=== PATIENT | female | born 1950 | race Caucasian/White ===

== ENCOUNTER → 2016-12-11 | Outpatient (CLI) | payer BC ==
[~2016-12-11] MED LIST: BPR75T PO; LEVO500T69 PO; NFPRILOC40 PO; SIMV40TA2
--- NOTE | 2016-12-11 19:18 | Diagnostic Imaging Report ---
INDICATION: Digital mammogram bilateral screening with tomosynthesis. This study was compared to the prior exams of 12/07/15, 12/08/14 and 10/15/13. At this time, there are no current complaints. The current study was also evaluated with a Computer Aided Detection (CAD) system. FINDINGS: There are scattered fibroglandular densities in both breasts which could obscure a lesion. When compared to the prior study, there has been no significant change. There is no primary or secondary sign of malignancy noted. The 3D tomographic views also fail to show any sign of malignancy. IMPRESSION: There is no evidence of malignancy. ACR BI-RADS Category 1: Negative. Result letter will be mailed to the patient. Note: At least 10% of breast cancer is not imaged by mammography. Dictated by: Dictated on workstation # [id number]
== END ==
LOC: RAD 11:09
PROVIDERS: ATTEND Nurse Practitioner Family
DX: Z12.31 Encounter for screening mammogram for malignant neoplasm of breast (principal)
CPT/HCPCS: 77067

== ENCOUNTER → 2018-01-16 | Outpatient (CLI) | payer BC ==
--- NOTE | 2018-01-19 18:07 | Diagnostic Imaging Report ---
INDICATION: Screening. The current study was also evaluated with a Computer Aided Detection (CAD) system. 3-D tomosynthesis was also performed and reviewed. COMPARISON is made with prior examinations from 12/11/2016 back to 04/24/2011. FINDINGS: There are scattered fibroglandular densities bilaterally. There is no dominant mass, spiculated lesion or suspicious calcification identified. The skin, nipples and axillae are unremarkable. IMPRESSION: Category 1, negative. ACR BI-RADS Category 1: Negative. Result letter will be mailed to the patient. Note: At least 10% of breast cancer is not imaged by mammography. Dictated by: Dictated on workstation # [id number]
== END ==
LOC: RAD 13:04
PROVIDERS: ATTEND Nurse Practitioner Family
DX: Z12.31 Encounter for screening mammogram for malignant neoplasm of breast (principal)
CPT/HCPCS: 77067

== ENCOUNTER 2018-09-19 05:56 | Emergency (ER) | payer BC | END 2018-09-19 06:36 | disposition home or self-care (01) | LOC: ER 05:56 ==

== ENCOUNTER → 2019-01-18 | Outpatient (CLI) | payer BC ==
[~2019-01-18] MED LIST changes: +AMOX-355 PO
--- NOTE | 2019-01-18 09:47 | Diagnostic Imaging Report ---
Indication: Routine screening. Comparison is made with prior mammogram from 01/16/2018 and 12/11/2016. 2-D and 3-D bilateral screening mammography was performed with CAD. Scattered fibroglandular densities are identified bilaterally. The parenchymal pattern is stable. Nodular densities in the upper left breast at anterior depth appears stable and consistent with benign etiology. No spiculated mass or malignant appearing microcalcifications are seen. The axillae are unremarkable. Impression: BI-RADS category 2. No mammographic features suspicious for malignancy are identified. ACR BI-RADS Category 2: Benign findings. Result letter will be mailed to the patient. Note: At least 10% of breast cancer is not imaged by mammography. Dictated by: Dictated on workstation # [id number]
== END ==
LOC: RAD 06:47
PROVIDERS: ATTEND Nurse Practitioner Family
DX: Z12.31 Encounter for screening mammogram for malignant neoplasm of breast (principal)
CPT/HCPCS: 77067

== ENCOUNTER → 2019-01-19 | Outpatient (CLI) | payer BC ==
--- NOTE | 2019-01-19 16:48 | Diagnostic Imaging Report ---
INDICATION: Asymptomatic postmenopausal screening COMPARISON: 12/07/2015 FINDINGS: AP Spine L1-L4: [BMD (g/cm2): 0.893] [T-Score: -2.6] [Z-Score: -0.9] [BMD Previous: 0.888] [BMD % Change: 0.6] LT Hip Neck: [BMD (g/cm2): 0.725] [T-Score: -2.2] [Z-Score: -0.5] LT Hip Total: [BMD (g/cm2):0.844] [T-Score:-1.3] [Z-Score: 0.2] [BMD Previous: 0.812] [BMD % Change: 3.9] RT Hip Neck: [BMD (g/cm2):0.758] [T-Score:-2.0] [Z-Score:-0.3] RT Hip Total: [BMD (g/cm2):0.883] [T-score:-1.0] [Z-Score:0.5] [BMD Previous:0.837] [BMD % Change:5.5] *Indicates significant change from prior examination based on 95% confidence level. World Health Organization criteria for BMD interpretation classify patients as Normal (T-score at or above -1.0), Osteopenic (T-score between -1.0 and -2.5) or Osteoporotic (T-score at or below -2.5). LIMITATIONS AND MODIFICATION: None. FRACTURE RISK (FRAX SCORE): The ten year probability of (%): Major Osteoporotic Fracture: [13.5] Hip Fracture: [3.1] IMPRESSION: 1. Osteoporosis. 2. There has been a statistically significant increase in BMD since prior exam, detailed above. 3. See below National Osteoporosis Foundation guidelines on when to potentially initiate pharmacologic therapy. Based on the National Osteoporosis Foundation Guidelines, pharmacologic treatment should be initiated in any of the following, unless clinical conditions suggest otherwise: * Any patient with prior fragility fracture of the hip or vertebrae. A spine fracture indicates 5X risk for subsequent spine fracture and 2X risk for subsequent hip fracture. * Osteoporosis (T-score <-2.5). * Postmenopausal women and men age 50 and older with low bone mass/osteopenia (T-score between -1.0 and -2.5) by DXA and 10-year major osteoporotic fracture greater than 20% or a 10-year probability of hip fracture greater than 3%. These fracture risks are supplied above in the FRAX score, if applicable. * Clinician judgement and/or patient preferences may indicate treatment for people with 10-year fracture probabilities above or below these levels. Dictated by: Dictated on workstation # [id number]
== END ==
LOC: RAD 13:15
PROVIDERS: ATTEND Nurse Practitioner Family
DX: M81.0 Age-related osteoporosis without current pathological fracture (principal); Z78.0 Asymptomatic menopausal state
CPT/HCPCS: 77080

== ENCOUNTER → 2020-02-29 | Outpatient (CLI) | payer BC, MEDICARE ==
--- NOTE | 2020-02-29 12:35 | Diagnostic Imaging Report ---
INDICATION: Routine screening. Comparison is made prior mammogram 01/18/2019 and 01/16/2018. 2-D and 3-D bilateral screening mammography was performed with CAD. Scattered fibroglandular densities are identified bilaterally. The parenchymal pattern is stable. Tiny benign nodule outer right breast is stable. No new mass or malignant-appearing microcalcifications are seen. Axillae are unremarkable. IMPRESSION: BI-RADS Category 2 No mammographic features suspicious for malignancy are identified. ACR BI-RADS Category 2: Benign findings. Result letter will be mailed to the patient. Note: At least 10% of breast cancer is not imaged by mammography. Dictated by: Dictated on workstation # [id number]
== END ==
LOC: RAD 08:00
PROVIDERS: ATTEND Nurse Practitioner Family
DX: Z12.31 Encounter for screening mammogram for malignant neoplasm of breast (principal)
CPT/HCPCS: 77063; 77067

== ENCOUNTER → 2020-05-12 | Outpatient (REF) ==
--- NOTE | 2020-05-12 15:48 | Diagnostic Imaging Report ---
INDICATION: Leg pain AP and lateral views of the left leg are obtained. FINDINGS: No acute fracture or dislocation is identified. No abnormal lytic or sclerotic focus is seen, and there is no radiopaque foreign body. IMPRESSION: No acute abnormality. Dictated by: Dictated on workstation # [id number]
--- NOTE | 2020-05-12 15:52 | Diagnostic Imaging Report ---
EXAMINATION: Right foot radiographs, 3 views. COMPARISON: None. HISTORY: 70-year-old female, fall. Right foot pain. FINDINGS: There is a mildly comminuted minimally displaced fracture of the right fifth metatarsal base with probable intra-articular fracture extension. There is no identified offset of the articulating surface. 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 IMPRESSION: 1. Comminuted minimally displaced fracture of the fifth metatarsal base with probable fracture involvement of the articulating surface without offset of the articulating surface Dictated by: Dictated on workstation # [id number]
--- NOTE | 2020-05-12 16:03 | Diagnostic Imaging Report ---
EXAMINATION: Left knee radiographs, 3 views. COMPARISON: None. HISTORY: 70-year-old female, fall. Left knee pain. FINDINGS: There is a lucency in the proximal fibula on the oblique view which does raise question of a nondisplaced proximal fibular fracture. Recommend correlation for focal pain at this exact site. There is no otherwise identified potential acute fracture. There is no knee joint effusion. There is mild patellofemoral compartment osteoarthritis. The medial and lateral joint compartments are well preserved. IMPRESSION: 1. Question nondisplaced proximal fibular fracture. Recommend correlation for focal pain at this exact site. 2. No knee joint effusion. 3. Mild patellofemoral compartment osteoarthritis. Dictated by: Dictated on workstation # [id number]
== END ==
LOC: OCC 15:15
PROVIDERS: ATTEND Nurse Practitioner Family
DX: S92.351A Displaced fracture of fifth metatarsal bone, right foot, initial encounter for closed fracture (principal); M17.12 Unilateral primary osteoarthritis, left knee; W19.XXXA Unspecified fall, initial encounter
CPT/HCPCS: 73562; 73590; 73630

== ENCOUNTER → 2020-05-17 | Outpatient (CLI) | payer OTHER | LOC: ORTHO 10:35 | PROVIDERS: ATTEND Orthopaedic Surgery | DX: S92.354A Nondisplaced fracture of fifth metatarsal bone, right foot, initial encounter for closed fracture (principal) ==

== ENCOUNTER → 2020-05-29 | Outpatient (CLI) | payer OTHER ==
--- NOTE | 2020-05-29 09:28 | Diagnostic Imaging Report ---
INDICATION: Fracture. FINDINGS: Bones are osteopenic. There are degenerative changes. There is a nondisplaced fracture of the proximal fifth metatarsal. Alignment is grossly anatomic. There is no other fracture or dislocation. IMPRESSION: Relatively stable alignment of the fracture involving the base of the fifth metatarsal. Osteopenia and degenerative change. Dictated by: Dictated on workstation # [id number]
== END ==
LOC: ORTHO 08:29
PROVIDERS: ATTEND Orthopaedic Surgery
DX: S92.354A Nondisplaced fracture of fifth metatarsal bone, right foot, initial encounter for closed fracture (principal); X58.XXXA Exposure to other specified factors, initial encounter; M81.0 Age-related osteoporosis without current pathological fracture
CPT/HCPCS: 73630

== ENCOUNTER → 2020-06-19 | Outpatient (CLI) | payer OTHER ==
--- NOTE | 2020-06-19 08:58 | Diagnostic Imaging Report ---
INDICATION: 5th metatarsal fracture, followup. TIME OF EXAM: 8:49 AM. COMPARISON: Correlation is made with the prior radiograph from 05/29/2020. FINDINGS: The transversely oriented fracture through the proximal 5th metatarsal is again noted. The fracture line remains clearly visible. There appears to be some mild callus formation although the fracture line is clearly visible. Alignment is anatomic. The remaining metatarsals are intact. There are degenerative changes at the 1st MTP joint. The midfoot and hindfoot are unremarkable. IMPRESSION: Healing proximal 5th metatarsal fracture although fracture lines remain clearly visible. Dictated by: Dictated on workstation # [id number]
== END ==
LOC: ORTHO 08:35
PROVIDERS: ATTEND Orthopaedic Surgery
DX: S92.354D Nondisplaced fracture of fifth metatarsal bone, right foot, subsequent encounter for fracture with routine healing (principal); X58.XXXD Exposure to other specified factors, subsequent encounter
CPT/HCPCS: 73630

== ENCOUNTER → 2020-07-10 | Outpatient (CLI) | payer OTHER ==
--- NOTE | 2020-07-10 09:11 | Diagnostic Imaging Report ---
INDICATION: Fracture. Comparison made with prior examination of 06/19/2020. FINDINGS: There is stable alignment of the fracture involving the base of the fifth metatarsal. Fracture line remains visible although there does appear to be some callus formation. There are degenerative changes in the midfoot. No other fracture or dislocation. There are degenerative changes of first metatarsophalangeal joint. IMPRESSION: Stable alignment of the essentially nondisplaced fracture along the base of fifth metatarsal. Degenerative changes as described. Dictated by: Dictated on workstation # [id number]
== END ==
LOC: ORTHO 08:28
PROVIDERS: ATTEND Orthopaedic Surgery
DX: S92.354A Nondisplaced fracture of fifth metatarsal bone, right foot, initial encounter for closed fracture (principal); M19.071 Primary osteoarthritis, right ankle and foot; X58.XXXA Exposure to other specified factors, initial encounter
CPT/HCPCS: 73630

== ENCOUNTER → 2021-02-13 | Outpatient (CLI) | payer MEDICARE, OTHER ==
--- NOTE | 2021-02-13 07:58 | Diagnostic Imaging Report ---
PROCEDURE: US Gallbladder. TECHNIQUE: Multiple real-time grayscale images were obtained over the right upper quadrant in various projections. INDICATION: Elevated liver function test. COMPARISON: 01/21/2012 FINDINGS: There is a benign liver cyst and benign hemangioma in the left hepatic lobe liver which is stable. No intrahepatic biliary duct dilatation is seen. Common bile duct is normal at 5 mm. Portal venous flow is normal. The gallbladder contains some tiny polyps adhered to the wall. There is no cholelithiasis or cholecystitis. Visualized pancreas, IVC, aorta and right kidney are normal. No ascites IMPRESSION: 1. Stable benign liver cyst and a hemangioma of the left hepatic lobe. 2. No intra or extrahepatic biliary duct dilatation. 3. No cholelithiasis or cholecystitis. 4. No ascites. Dictated by: Dictated on workstation # [id number]
== END ==
LOC: RAD 06:50
PROVIDERS: ATTEND Family Medicine
DX: D18.03 Hemangioma of intra-abdominal structures (principal); K76.89 Other specified diseases of liver; R94.5 Abnormal results of liver function studies
CPT/HCPCS: 76705

== ENCOUNTER → 2021-03-02 | Outpatient (CLI) | payer MEDICARE, OTHER ==
--- NOTE | 2021-03-02 11:09 | Diagnostic Imaging Report ---
INDICATION: Routine screening. Comparison is made with prior mammogram from 02/29/2020 and 01/18/2019. 2-D and 3-D bilateral screening mammography was performed with CAD. Scattered fibroglandular densities are identified bilaterally. A tiny benign nodule in the outer right breast is stable. No new mass or malignant-appearing microcalcifications are seen. Axillae are unremarkable. IMPRESSION: No mammographic features suspicious for malignancy are identified. BI-RADS Category 2 ACR BI-RADS Category 2: Benign findings. Result letter will be mailed to the patient. Note: At least 10% of breast cancer is not imaged by mammography. Dictated by: Dictated on workstation # [id number]
== END ==
LOC: RAD 07:51
PROVIDERS: ATTEND Nurse Practitioner Family
DX: Z12.31 Encounter for screening mammogram for malignant neoplasm of breast (principal)
CPT/HCPCS: 77063; 77067

== ENCOUNTER → 2021-03-02 | Outpatient (CLI) | payer MEDICARE, OTHER ==
--- NOTE | 2021-03-02 08:56 | Diagnostic Imaging Report ---
CT CHEST SCREENING WO TECHNIQUE: Low-dose unenhanced CT of the chest was performed according to the screening protocol. Coronal MIP and sagittal MPR reformats are created. Automatic exposure controls were utilized to keep dose as low as reasonably achievable. INDICATION: [id number] history of smoking. Quit smoking 12 years ago. COMPARISON: CT chest of 01/21/2012 FINDINGS: Pulmonary findings: No tracheal nodule. No pneumonia or edema. No suspicious pulmonary nodules. There are few scattered calcified pulmonary granulomas. Extrapulmonary findings: No pericardial or pleural effusion. Heart is normal in size. No mediastinal lymphadenopathy. Borderline enlarged left axillary lymph node is unchanged since 2012 and can be considered benign. Mild coronary artery calcifications. There are few hypodensities within liver which are poorly assessed on this exam but correspond to sites of previously noted cysts in 2012. IMPRESSION: 1. Screening exam is negative for features of clinically active lung cancer. 2. Mild coronary artery calcifications. Lung-RADS category: 1 - Negative Recommendations: Continued annual screening with low-dose CT in 12 months. Dictated by: Dictated on workstation # [id number]
== END ==
LOC: RAD 08:05
PROVIDERS: ATTEND Nurse Practitioner Family
DX: Z12.2 Encounter for screening for malignant neoplasm of respiratory organs (principal); I25.10 Atherosclerotic heart disease of native coronary artery without angina pectoris; Z87.891 Personal history of nicotine dependence
CPT/HCPCS: 71271

== ENCOUNTER → 2021-05-09 | Outpatient (CLI) | payer MEDICARE, OTHER ==
[~2021-05-09] MED LIST changes: +CATHETER FLUSH 10 ML SYR IV PRN; +HOLD METFORMIN - RECEIVED CONTRAST 20 ML VIAL IV SCH; +IOHEXOL 350 MG/ML 100 ML (OMNIPAQUE 350) VIAL IV ONE; +NS 100 ML (IVPB) BAG IV ONE
[2021-05-09 08:07] LABS: CREATININE SERUM 0.78 MG/DL (0.60-1.30)
--- NOTE | 2021-05-09 09:20 | Diagnostic Imaging Report ---
PROCEDURE: CT abdomen with contrast only. TECHNIQUE: Multiple contiguous axial images were obtained through the abdomen after the administration of intravenous contrast. Auto Exposure Controls were utilized during the CT exam to meet ALARA standards for radiation dose reduction. INDICATION: Elevated liver enzyme. FINDINGS: There are 2 cysts noted in the liver, 1 within the posterior aspect of the dome of the liver on the right lobe and the 2nd within the left lobe which measures approximately 2 cm. There is an additional lesion in the left lobe in segment 3 measuring 2.2 cm which is low density with some peripheral enhancement on the initial arterial phase. This shows isointensity on the venous phase. The bile ducts are not dilated. Gallbladder is not distended. No gallstones or wall thickening demonstrated. The pancreas and spleen are normal. The adrenal glands are not enlarged. Kidneys show normal enhancement without obstruction. No calculi or masses are seen. The aorta and abdominal vessels are well opacified and show mild atherosclerotic disease without evidence of aneurysm or dissection. The stomach shows oral contrast and appears normal. The portion of the small bowel and colon visualized is normal. The pelvis was not imaged. No adenopathy of pathologic size. There is a superior endplate compression fracture of L2. Sclerotic Modic changes of T12-L1 endplates as well as a L4-L5 endplates. There is grade 2 anterior listhesis of L4 on L5. There are bilateral pars defects of L4. This is causing moderate spinal stenosis. IMPRESSION: 1. Benign cyst in the right and left lobe of the liver. There is also a lesion that shows enhancement with isointensity on delayed images consistent with hemangioma in the left lobe and just over 2 cm. 2. Modic degenerative changes within the lumbar spine as described as well as a chronic superior endplate compression of L2. 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 Dictated by: Dictated on workstation # [id number]
== END ==
LOC: RAD 08:45
PROVIDERS: ATTEND Nurse Practitioner Family
DX: K76.89 Other specified diseases of liver (principal); M47.816 Spondylosis without myelopathy or radiculopathy, lumbar region; M43.16 Spondylolisthesis, lumbar region; M48.55XA Collapsed vertebra, not elsewhere classified, thoracolumbar region, initial encounter for fracture; R94.5 Abnormal results of liver function studies
CPT/HCPCS: 36415; 74160; 82565; 84520

== ENCOUNTER → 2021-05-11 | Outpatient (CLI) | payer MEDICARE, OTHER ==
[~2021-05-11] MED LIST changes: -CATHETER FLUSH 10 ML SYR IV PRN; -HOLD METFORMIN - RECEIVED CONTRAST 20 ML VIAL IV SCH; -IOHEXOL 350 MG/ML 100 ML (OMNIPAQUE 350) VIAL IV ONE; -NS 100 ML (IVPB) BAG IV ONE
[2021-05-11 22:19] LABS: HEPATITIS C ANTIBODY C Non-Reactive (Non-Reactive)
== END ==
LOC: LAB 08:57
PROVIDERS: ATTEND Family Medicine
DX: R94.5 Abnormal results of liver function studies (principal)
CPT/HCPCS: 36415; 80074

== ENCOUNTER → 2021-06-12 | Outpatient (CLI) | payer MEDICARE, OTHER ==
--- NOTE | 2021-06-12 09:44 | Diagnostic Imaging Report ---
PROCEDURE: MRI lumbar spine. TECHNIQUE: Multiplanar, multisequence MRI of the lumbar spine was performed without contrast. INDICATION: L2 compression fracture. Back pain. COMPARISON: CT abdomen with IV contrast dated 05/09/2021. FINDINGS: There are five lumbar-type vertebral bodies for the purposes of this report. Moderate left apex lumbar scoliosis. Mild rightward listhesis of T12 on L1. Grade 1 retrolisthesis of L1 on L2. Grade 2 anterolisthesis of L4 on L5 with bilateral L4 pars defects. Superior endplate height loss of L2 of approximately 30% centrally. There is some mild edema within the superior endplate. There is approximately 50% height loss of L4 with edema in the superior endplate. Modic type I degenerative endplate changes at T12-L1. Schmorl's nodes in the inferior endplates of T11 and T12. No abnormal signal in the conus which terminates at L1-L2. Normal morphology of the cauda equina. The visualized pelvis and paravertebral soft tissues are unremarkable. L1-L2: The retrolisthesis results in mild spinal canal and bilateral lateral recess narrowing. Moderate left and severe right neuroforaminal narrowing. L2-L3: No substantial spinal canal or lateral recess narrowing. Disc space height loss results in moderate right neuroforaminal narrowing. L3-L4: No spinal canal or lateral recess narrowing. Moderate right and mild left neuroforaminal narrowing, primarily due to disc space height loss. L4-L5: No spinal canal or lateral recess narrowing. The anterolisthesis and disc space height loss result in severe bilateral neuroforaminal narrowing. L5-S1: No substantial spinal canal or lateral recess narrowing. Mild facet arthropathy. Moderate left and mild right neuroforaminal narrowing. IMPRESSION: 1. Bilateral L4 pars defects with grade 2 anterolisthesis of L4 on L5. 2. Height loss involving the L2 and L4 vertebral bodies is primarily central and demonstrates sclerotic changes on the comparison CT exam, most compatible with chronic changes. Although there is some superior endplate edema at both of these levels, this could be due to Modic type I degenerative endplate changes versus acute to subacute compression fractures. 3. Spondylotic and scoliotic changes result in multilevel high-grade neuroforaminal narrowing detailed above level by level. No high-grade spinal canal stenosis. 4. Modic type I degenerative endplate changes at T12-L1. Dictated by: Dictated on workstation # [id number]
== END ==
LOC: RAD 08:00
PROVIDERS: ATTEND Nurse Practitioner Family
DX: M43.16 Spondylolisthesis, lumbar region (principal); M48.56XA Collapsed vertebra, not elsewhere classified, lumbar region, initial encounter for fracture; M47.815 Spondylosis without myelopathy or radiculopathy, thoracolumbar region; M47.817 Spondylosis without myelopathy or radiculopathy, lumbosacral region; M48.07 Spinal stenosis, lumbosacral region
CPT/HCPCS: 72148

== ENCOUNTER → 2022-02-12 | Outpatient (CLI) | payer MEDICARE, OTHER ==
--- NOTE | 2022-02-12 08:38 | Diagnostic Imaging Report ---
INDICATION: Postmenopausal state COMPARISON: 01/19/2019 FINDINGS: AP Spine L1-L4: [BMD (g/cm2): 0.868] [T-Score: -2.8] [Z-Score: -1.3] [BMD Previous: 0.893] [BMD % Change: -2.8] LT Hip Neck: [BMD (g/cm2): 0.712] [T-Score: -2.3] [Z-Score: -0.6] LT Hip Total: [BMD (g/cm2):0.830] [T-Score:-1.4] [Z-Score: 0.1] [BMD Previous: 0.844] [BMD % Change: -1.7] RT Hip Neck: [BMD (g/cm2):0.719] [T-Score:-2.3] [Z-Score:-0.6] RT Hip Total: [BMD (g/cm2):0.839] [T-score:-1.3] [Z-Score:0.2] [BMD Previous:0.883] [BMD % Change:-5.0] *Indicates significant change from prior examination based on 95% confidence level. World Health Organization criteria for BMD interpretation classify patients as Normal (T-score at or above -1.0), Osteopenic (T-score between -1.0 and -2.5) or Osteoporotic (T-score at or below -2.5). LIMITATIONS AND MODIFICATION: None. FRACTURE RISK (FRAX SCORE): The ten year probability of (%): Major Osteoporotic Fracture: [14.7] Hip Fracture: [4.1] IMPRESSION: 1. Osteoporosis. 2. Bone mineral density within the hips has significantly decreased since the prior examination. Bone mineral density within the lumbar spine has not significantly changed. 3. See below National Osteoporosis Foundation guidelines on when to potentially initiate pharmacologic therapy. Based on the National Osteoporosis Foundation Guidelines, pharmacologic treatment should be initiated in any of the following, unless clinical conditions suggest otherwise: * Any patient with prior fragility fracture of the hip or vertebrae. A spine fracture indicates 5X risk for subsequent spine fracture and 2X risk for subsequent hip fracture. * Osteoporosis (T-score <-2.5). * Postmenopausal women and men age 50 and older with low bone mass/osteopenia (T-score between -1.0 and -2.5) by DXA and 10-year major osteoporotic fracture greater than 20% or a 10-year probability of hip fracture greater than 3%. These fracture risks are supplied above in the FRAX score, if applicable. * Clinician judgement and/or patient preferences may indicate treatment for people with 10-year fracture probabilities above or below these levels. Dictated by: Dictated on workstation # [id number]
== END ==
LOC: RAD 08:30
PROVIDERS: ATTEND Nurse Practitioner Family
DX: M81.0 Age-related osteoporosis without current pathological fracture (principal); Z78.0 Asymptomatic menopausal state
CPT/HCPCS: 77080

== ENCOUNTER → 2022-03-05 | Outpatient (CLI) | payer MEDICARE, OTHER ==
--- NOTE | 2022-03-05 09:54 | Diagnostic Imaging Report ---
CT Lung Screening INDICATION:Screening for lung cancer, 61 pack year history of smoking, quit smoking 13 years prior TECHNIQUE: Noncontrast, low-dose CT imaging performed according to the lung cancer screening protocol. Auto Exposure Controls were utilize during the CT exam to meet ALARA standards for radiation dose reduction. COMPARISON:03/02/2021 FINDINGS:A rounded left axillary lymph node is present measuring 1.9 x 1.4 cm, increased in size since the prior examination. No additional adenopathy within the chest. Mild scattered vascular calcifications, including within the coronary arteries without aneurysmal dilatation of the thoracic aorta. The descending thoracic aorta is tortuous. The heart is within normal limits in size. No pericardial effusion. No pleural effusion. The trachea is patent. No pneumothorax. Stable sub-solid 0.5 cm left lower lobe pulmonary nodule, series 2, image 63. Stable 0.3 cm left upper lobe pulmonary nodule, series 2, image 54. Scarring and atelectasis within the medial right middle lobe. 0.5 cm pleural-based right middle lobe pulmonary nodules again identified not significantly changed, series 2, image 91. No additional new suspicious pulmonary nodule. The minimally visualized upper abdomen is unremarkable. Scattered osseous degenerative changes without acute osseous abnormality. IMPRESSION:Stable sub- 0.6 cm bilateral pulmonary nodules which demonstrate a benign appearance or behavior. Mild left axillary adenopathy, having developed since the prior examination. This of uncertain etiology. This could be reactive in nature if patient has received a recent vaccine within the left upper extremity or has infection within the left upper extremity. However, an infiltrative process would be an additional consideration. Recommend targeted ultrasound for further evaluation. LUNG-RADS CATEGORY:2S: Benign appearance or behavior. MODIFIER:Left axillary adenopathy. FOLLOWUP: Low-dose CT of the chest is recommended in 12 months. Additionally, targeted ultrasound of the left axilla is recommended to further evaluate the developing left axillary adenopathy. Dictated by: Dictated on workstation # [id number]
== END ==
LOC: RAD 08:45
PROVIDERS: ATTEND Nurse Practitioner Family
DX: Z12.2 Encounter for screening for malignant neoplasm of respiratory organs (principal); R59.0 Localized enlarged lymph nodes; R91.8 Other nonspecific abnormal finding of lung field; Z87.891 Personal history of nicotine dependence
CPT/HCPCS: 71271

== ENCOUNTER → 2022-03-05 | Outpatient (CLI) | payer MEDICARE, OTHER ==
--- NOTE | 2022-03-05 21:02 | Diagnostic Imaging Report ---
TECHNIQUE: 3 bilateral screening mammogram The current study was also evaluated with a Computer Aided Detection (CAD) system. COMPARISON: This study was compared to the prior exams of 03/02/2021, 02/29/2020 and 01/18/2019. There are no current complaints. FINDINGS: There are scattered fibroglandular densities in both breasts which could obscure a lesion. Overall, there does not appear to have been any significant change when compared to the prior exam. No primary or secondary sign of malignancy is noted. IMPRESSION: There is no radiographic evidence for malignancy. ACR BI-RADS Category 1: Negative. Result letter will be mailed to the patient. Note: At least 10% of breast cancer is not imaged by mammography. Dictated by: Dictated on workstation # [id number]
== END ==
LOC: RAD 07:42
PROVIDERS: ATTEND Family Medicine
DX: Z12.31 Encounter for screening mammogram for malignant neoplasm of breast (principal)
CPT/HCPCS: 77063; 77067

== ENCOUNTER → 2022-03-19 | Outpatient (CLI) | payer MEDICARE, OTHER ==
[~2022-03-19] VITALS: Ht 154 cm; Wt 72.2 kg
[~2022-03-19] MED LIST changes: +DENOSUMAB 60 MG/1 ML (PROLIA) SQ SCH
[2022-03-19 12:20] VITALS: BP 141/92
== END ==
LOC: SDC 11:58
PROVIDERS: ATTEND Nurse Practitioner Family
DX: M81.0 Age-related osteoporosis without current pathological fracture (principal)
CPT/HCPCS: 96372

== ENCOUNTER → 2022-03-27 | Outpatient (CLI) | payer MEDICARE, OTHER ==
[~2022-03-27] MED LIST changes: -DENOSUMAB 60 MG/1 ML (PROLIA) SQ SCH
--- NOTE | 2022-03-27 21:44 | Diagnostic Imaging Report ---
INDICATION: Left breast lump. EXAMINATION: Ultrasound of the left breast. COMPARISON: There are no previous left breast ultrasound examinations available for comparison. The 3D screening mammogram performed on 03/05/2022 failed to show any sign of malignancy in the left axilla. There did appear to be a few lymph nodes in each axilla. On this study, there is a 1.6 x 0.9 x 1.6 cm well-circumscribed avascular hypoechoic area in the left axilla. I suspect that this is a small lymph node although the typical fatty hilum is not well visualized. It is possible that this could represent a slightly complicated cyst. There is no other mass to suggest malignancy. IMPRESSION: 1. The small hypoechoic lesion is most likely a benign process. A short-term (three-month) follow-up ultrasound exam would be recommended for further study. 2. These results were discussed with Dr. Carmen Schmitz. ACR BI-RADS Category 3: Probably benign findings. Result letter will be mailed to the patient. Note: At least 10% of breast cancer is not imaged by mammography. Dictated on workstation # [id number]
== END ==
LOC: RAD 14:15
PROVIDERS: ATTEND Family Medicine
DX: N63.20 Unspecified lump in the left breast, unspecified quadrant (principal); R59.0 Localized enlarged lymph nodes

== ENCOUNTER → 2022-07-01 | Outpatient (CLI) | payer MEDICARE, OTHER ==
--- NOTE | 2022-07-01 15:08 | Diagnostic Imaging Report ---
INDICATION: 3 month followup left axillary lymph node. COMPARISON: Correlation is made with the prior ultrasound from 03/27/2022. FINDINGS: Sonographic interrogation of the left axilla was performed. The previously noted ovoid hypoechoic nodule in the left axilla measures slightly larger at 1.9 x 1.3 x 1.4 cm compared with 1.6 x 0.9 x 1.6 cm. No new mass is identified. IMPRESSION: Slight increase in size of the hypoechoic nodule in the left axilla, perhaps owing to slight increase in size of a lymph node. Either an additional 3 month followup ultrasound or ultrasound guided core biopsy could be obtained for further evaluation. ACR BI-RADS Category 3: Probably benign findings. Dictated by: Dictated on workstation # [id number]
== END ==
LOC: RAD 13:54
PROVIDERS: ATTEND Nurse Practitioner Family
DX: N63.20 Unspecified lump in the left breast, unspecified quadrant (principal)

== ENCOUNTER → 2022-07-18 | Outpatient (CLI) | payer MEDICARE, OTHER ==
[~2022-07-18] VITALS: Ht 152.4 cm; Wt 72.3 kg
[~2022-07-18] MED LIST changes: +LIDOCAINE 1% INJ 30 ML (XYLOCAINE) VIAL INJ ONE; +LIDOCAINE 1% INJ 30 ML (XYLOCAINE) VIAL ONE
--- NOTE | 2022-07-18 11:00 | Diagnostic Imaging Report ---
INDICATION: Large left axillary lymph node. PROCEDURE: The patient presents for ultrasound guided core biopsy. The patient was brought to the sonographic suite, placed on the table in the supine position. Ultrasound imaging of the left axilla was performed to evaluate appropriate entry site. Left axilla was then prepped and draped in the usual sterile fashion. A small amount of 1% lidocaine was utilized for local anesthesia. A total of 4 core biopsies were made of the solid hypoechoic mass in the left axilla utilizing 14-gauge Achieve needle. The needle was withdrawn and hemostasis was obtained. The patient tolerated the procedure well and left the department in stable condition. IMPRESSION: Successful ultrasound-guided core biopsy of the enlarged left axillary lymph node. Pathology results are currently pending. Dictated by: Dictated on workstation # [id number]
== END ==
LOC: RAD 09:34
PROVIDERS: ATTEND Nurse Practitioner Family
DX: N63.32 Unspecified lump in axillary tail of the left breast (principal)
CPT/HCPCS: 76942

== ENCOUNTER 2022-09-25 10:58 | Outpatient (CLI) | payer MEDICARE, OTHER ==
[~2022-09-25 10:58] MED LIST changes: -LIDOCAINE 1% INJ 30 ML (XYLOCAINE) VIAL INJ ONE; -LIDOCAINE 1% INJ 30 ML (XYLOCAINE) VIAL ONE
[2022-09-25 11:05] VITALS: BP 132/91
[2022-09-25] MEDS ORDERED: DENOSUMAB 60 MG/1 ML (PROLIA) SQ SCH (11:15)
== END 2022-09-25 11:35 | disposition home or self-care (01) ==
LOC: SDC 10:58
PROVIDERS: ATTEND Nurse Practitioner Family
DX: M81.0 Age-related osteoporosis without current pathological fracture (principal)
CPT/HCPCS: 96372

== ENCOUNTER → 2022-11-19 | Outpatient (CLI) | payer MEDICARE, OTHER ==
--- NOTE | 2022-11-19 13:46 | Diagnostic Imaging Report ---
EXAMINATION: Left ribs unilateral 2 view HISTORY: Left-sided rib pain COMPARISON: None available. FINDINGS: No rib fracture is seen. No pneumothorax. Heart size is normal. IMPRESSION: 1. No left-sided rib fracture seen. Dictated by: Dictated on workstation # [id number]
== END ==
LOC: RAD 11:49
PROVIDERS: ATTEND Nurse Practitioner Family
DX: R07.81 Pleurodynia (principal)
CPT/HCPCS: 71100

== ENCOUNTER → 2023-03-03 | Outpatient (CLI) | payer MEDICARE, OTHER ==
--- NOTE | 2023-03-03 15:03 | Diagnostic Imaging Report ---
INDICATION: Bilateral hip pain. COMPARISON: None available. TECHNIQUE: Five radiographs of the pelvis and bilateral hips dated 03/03/2023. FINDINGS: Moderate degenerative changes within the partially visualized lower lumbar spine with associated apex left curvature of the lumbar spine. No acute fracture or dislocation. No destructive osseous process. Severe joint space narrowing of the right hip, particularly superiorly, with sclerosis of the articular surfaces and subchondral cyst formation. Moderate joint space narrowing of the left hip with mild joint space narrowing. The bilateral femoral heads maintain their normal shape and contour. Mild degenerative changes of the pubic symphysis. 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 Dictated by: Dictated on workstation # [id number]
== END ==
LOC: RAD 12:33
PROVIDERS: ATTEND Family Medicine
DX: M16.0 Bilateral primary osteoarthritis of hip (principal)
CPT/HCPCS: 73523

== ENCOUNTER → 2023-03-11 | Outpatient (CLI) | payer MEDICARE, OTHER ==
--- NOTE | 2023-03-11 15:39 | Diagnostic Imaging Report ---
3-D bilateral screening mammogram with CAD. This study was compared to the prior exam of 03/05/2022, 03/02/2021 and 02/29/2020. At this time there are no current complaints. The current study was also evaluated with a Computer Aided Detection (CAD) system. FINDINGS: The breasts are almost entirely fatty. When compared to the previous study there has been no significant change. No primary or secondary sign of malignancy is noted. IMPRESSION: There is no radiographic evidence for malignancy. ACR BI-RADS Category 1: Negative. Result letter will be mailed to the patient. Note: At least 10% of breast cancer is not imaged by mammography. Dictated by: Dictated on workstation # [id number]
== END ==
LOC: RAD 13:17
PROVIDERS: ATTEND Family Medicine
DX: Z12.31 Encounter for screening mammogram for malignant neoplasm of breast (principal)
CPT/HCPCS: 77063; 77067